=== PATIENT | male | born 1955 | race Caucasian/White ===

== ENCOUNTER 2016-10-21 12:46 | Outpatient (CLI) | payer OTHER ==
[2016-10-21 13:31] LABS: eGFR (African) > 60; eGFR (Non-African) > 60
== END 2016-10-21 12:47 ==
LOC: LAB 12:46
PROVIDERS: ATTEND Internal Medicine Cardiovascular Disease
DX: I10 Essential (primary) hypertension (principal); R06.02 Shortness of breath
CPT/HCPCS: 36415; 80048

== ENCOUNTER 2016-12-23 08:53 | Outpatient (CLI) | payer OTHER | END 2016-12-23 08:54 | LOC: CARD 08:53 | PROVIDERS: ATTEND Nurse Practitioner | DX: I25.10 Atherosclerotic heart disease of native coronary artery without angina pectoris (principal); I35.0 Nonrheumatic aortic (valve) stenosis; R06.02 Shortness of breath; I10 Essential (primary) hypertension; E11.9 Type 2 diabetes mellitus without complications; E78.5 Hyperlipidemia, unspecified | CPT/HCPCS: 99214 ==

== ENCOUNTER 2017-01-19 19:28 | Emergency (ER) | payer OTHER ==
--- NOTE | 2017-01-19 19:37 | ED Physician Documentation ---
Eye Trauma - HISTORIAN Historian: patient - HPI Chief Complaint: Eye Trauma Onset: hours Associated symptoms: pain Location: right eye Severity: severe Apparent Injury: yes Context: foreign body (grinding) Where: home Further Comments: yes (61 year old male patient presents with foreign body in right eye. 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 Patient c/o pain and irritation.) - ROS CONST: no problems - PAST HX Past History: hypertension (CHF, HLD, CABG with AVR, appendectomy, cholecystectomy) Immunizations: tetanus (9 months ago) Allergies/Adverse Reactions: Allergies Allergy/AdvReac Type Severity Reaction Status Date / Time No Known Allergies Allergy Verified 01/19/17 20:02 Home Medications: Ambulatory Orders Medication Instructions Recorded Unobtainable [Unobtainable] 01/19/17 - SOCIAL HX Smoking History: non-smoker - FAMILY HX Family History: denies: none - REVIEWED ASSESSMENTS Nursing Assessment Reviewed: Yes Vitals Reviewed: Yes Progress - Progress Progress: Patient examined with blue light, fluorescein uptake in right eye at 4 o'clock position. Patient has blue eyes with brown speckles. Unable to confirm if FB is still present. Irrigated with eye wash, patient continues to c/o FB sensation. Call to [facility], spoke with Dr De, will see patient in ER tonight or clinic in AM. Discussed treatment options with patient, recommended exam tonight. attempting to call patient's rn documentation specialist for consultation. Recommended evaluation at [facility]. ED Results Lab/Radiology - Orders Orders: ED Orders Category Date Time Status Tetracaine HCl/Pf [Pontocaine 5% Opth] Med 01/19/17 19:35 Once 2 drop OP NOW ONE Eye Trauma Physical Exam - Physical Exam General Appearance: mild distress Examined with Slit Lamp: No Visual Acuity: see nursing assessment Eyelids: nml inspection Conjunctiva and Sclera: nml inspection Corneas: fluorescein dye uptake (R) (at 4 o'clock position), examined with fluorescein (R) EOM's: intact Pupils: PERRL Skin: nml color, warm, skin intact Respiratory: no resp distress, chest non-tender, breath sounds normal CVS: reg rate & rhythm, heart sounds normal, equal pulses, no murmur, no gallop , PMI nml, no JVD, no friction rub, 24 Abdomen: non-tender Neuro/Psych: oriented x3, neuro intact, mood/affect nml, CN's nml as tested Discharge Clincal Impression: Foreign body of right eye Qualifiers: Encounter type: initial encounter Qualified Code(s): T15.91XA - Foreign body on external eye, part unspecified, right eye, initial encounter Referrals: Kate Wyatt MD [Primary Care Provider] - 2 Days Home Medications: Ambulatory Orders Unobtainable [Unobtainable] 01/19/17 Condition: Stable Disposition: 02 XFER SHT-TRM HOSP Decision to Admit: NO Decision Time: 20:11
[2017-01-19] MEDS ORDERED: OPTH IRRIGATION SOLUTION 120 ML BTL OP ONE (19:41)
[2017-01-19] MEDS: TETRACAINE HCL/PF 5% OPTH SOL OP ONE (19:41)
[2017-01-19] MEDS: OPTH IRRIGATION SOLUTION 120 ML BTL OP ONE (19:43)
[2017-01-19 20:28] VITALS: BP 122/84
== END 2017-01-19 20:23 | disposition short-term general hospital (02) ==
LOC: ED 19:28
DX: T15.91XA Foreign body on external eye, part unspecified, right eye, initial encounter (principal); X58.XXXA Exposure to other specified factors, initial encounter; Y93.9 Activity, unspecified; Y99.9 Unspecified external cause status
CPT/HCPCS: 99283

== ENCOUNTER 2018-04-24 13:02 | Outpatient (CLI) | payer OTHER | END 2018-04-24 13:04 | LOC: LAB 13:02 | PROVIDERS: ATTEND Family Medicine | DX: Z53.9 Procedure and treatment not carried out, unspecified reason (principal) ==

== ENCOUNTER 2018-05-23 10:39 | Outpatient (CLI) | payer OTHER ==
--- NOTE | 2018-05-23 12:46 | Diagnostic Imaging Report ---
FRANCESCA ROSADO [facility] [id number] [facility].[address] [id number] Report Submission Date: May 23, 2018 11:25:47 AM CDT Patient Study Name: EMERY BLANCO Date: May 23, 2018 10:57:03 AM CDT Modality Type: DX Gender: M Description: CHEST : 55 Institution: [facility] Physician: FRANCESCA ROSADO Examination: PA and lateral chest. History: Evaluate lung jacobson. PT STATES COUGH X 1 WEEK. PT STATES HE IS BEING TREATED FOR LYMES DISEASE X 3 WEEKS. PT STATES OPEN HEART SURGERY AND DOUBLE BYPASS. (Hx) Comparison exam: None provided. Findings: PA and lateral views of the chest demonstrates a normal cardiac and mediastinal silhouette. Mildly tortuous aorta with vascular calcifications. Sternotomy wires and cardiac valve. No focal infiltrate. No blunting of the costophrenic margins. Osseous structures are appropriate for age. Impression: No acute pulmonary process. Electronically signed on May 23, 2018 11:25:47 AM CDT by: Bud ARMENDARIZ
== END 2018-05-23 10:40 ==
LOC: RAD 10:39
PROVIDERS: ATTEND Family Medicine
DX: R05 Cough (principal); R50.9 Fever, unspecified
CPT/HCPCS: 71046